=== PATIENT | female | born 1985 | race Caucasian/White ===

== ENCOUNTER 2020-08-29 14:10 | Outpatient (CLI) | payer BC ==
[~2020-08-29] VITALS: Ht 152.4 cm; Wt 89.8 kg
[~2020-08-29 14:10] MED LIST: PRENATAL1 TA3 PO; TAMIFLU 75MG75 MG PO
[2020-08-29 15:02] VITALS: BP 105/69; PULSE 47; TEMP 98.5
== END 2020-08-30 07:23 | disposition home or self-care (01) ==
LOC: EUO 14:10
DX: D50.9 Iron deficiency anemia, unspecified (principal)
CPT/HCPCS: J1756; J7050